=== PATIENT | female | born 1955 | race Caucasian/White ===

== ENCOUNTER 2017-10-29 06:08 | Day surgery (SDC) | payer BC ==
--- NOTE | 2017-10-24 20:10 | HP ---
CC: Dr. Alethea Billingsley * ADMITTING HISTORY AND PHYSICAL: DATE OF ADMISSION: 10/29/17 ADMITTING DIAGNOSES: 1. Calculus, right proximal ureter. 2. Right flank pain. PLANNED PROCEDURE: Shock wave lithotripsy of calculus, right ureter; possible right stent insertion. SURGEON: Dr. Espitia. HISTORY OF PRESENT ILLNESS: Charlene Loya is a 62-year-old lady with a long- standing history of renal calculi. She had been seen several months ago and at that time was noted to have a 5.6-mm calculus in the right ureteropelvic junction without any hydronephrosis. She was recently seen in followup and was complaining of increasing right flank discomfort and ultrasound revealed a 5.2- cm calculus in the right proximal ureter and she is now being brought in for management of the same. PAST MEDICAL HISTORY: Significant for: 1. Juvenile-onset diabetes mellitus. 2. Hypertension. 3. Hypothyroidism. 4. Recurrent renal calculi. 5. Lumbar radiculopathy. 6. History of depression. PAST SURGICAL HISTORY: Significant for: 1. Seven surgical procedures related to the right knee. 2. x2. 3. Total abdominal hysterectomy. 4. Appendectomy. 5. Lower back fusion surgery. MEDICATIONS: On admission, include: 1. Gabapentin 600 mg twice a day. 2. Soma 2 tablets at bedtime as needed. 3. Bumetanide 0.5 mg 1 tablet daily. 4. Ramipril 10 mg twice a day. 5. Simvastatin 40 mg a day. 6. Lialda 1.2 g delayed release 1 tablet daily. 7. Budesonide extended release 3 mg 2 capsules daily. 8. Escitalopram 20 mg daily. 9. Levothyroxine 100 mcg daily. 10. Insulin as directed. ALLERGIES AND INTOLERANCES: PENICILLIN (rash), MORPHINE, and SUDAFED. SMOKING HISTORY: She is a former smoker, who quit 3 to 4 years ago. PHYSICAL EXAMINATION GENERAL: Reveals a pleasant middle-aged lady. VITAL SIGNS: Blood pressure is 124/76, pulse 72 per minute, oxygen saturation 99% on room air. LUNGS: Clear bilaterally. CARDIOVASCULAR: Regular rate and rhythm. S1, S2. ABDOMEN: Soft with right flank tenderness. LABORATORY DATA: Urinalysis is negative with no evidence of urinary tract infection. IMPRESSION: A 62-year-old lady with right flank pain and a 5-mm calculus in the proximal right ureter. PLAN: Planned procedure is shock wave lithotripsy of calculus, right ureter; possible right stent insertion. [id number]/[facility] #: [id number] GEOVANNY
[~2017-10-29 06:08] MED LIST: Buffered Lidocaine 0.9% SYRIN* 5 ML/SYR SYRINGE INTRADERM ONE
[2017-10-29] MEDS ORDERED: Levofloxacin 500 MG IVPREMIX(* 500 MG/100 ML BAG IVPB ONE (06:37)
[2017-10-29] MEDS ORDERED: Buffered Lidocaine 0.9% SYRIN* 5 ML/SYR SYRINGE ONE (06:37)
[2017-10-29] MEDS ORDERED: fentaNYL* 50 MCG/ML 2 ML VIAL (100 MCG VIAL) ONE (07:08)
[2017-10-29] MEDS ORDERED: Midazolam* 1 MG/ML 2 ML VIAL (2 MG) ONE ×2 (07:08)
[2017-10-29] MEDS ORDERED: Remifentanil* 2 MG VIAL ONE (07:23)
[2017-10-29] MEDS ORDERED: Iohexol 180 (CONTRAST) 10 ML SDV IV ONE (07:29)
[2017-10-29] MEDS ORDERED: Furosemide IV* 10 MG/ML 2 ML VIAL (20 MG) ONE (07:40)
[2017-10-29] MEDS ORDERED: Ondansetron INJ* 2 MG/ML VIAL IV PRN (07:54)
[2017-10-29] MEDS ORDERED: Naloxone* 0.4 MG/ML 1 ML VIAL IV PRN (07:54)
[2017-10-29] MEDS ORDERED: fentaNYL* 50 MCG/ML 2 ML VIAL (100 MCG VIAL) IV PRN (07:54)
[2017-10-29] MEDS ORDERED: Propofol* 10 MG/ML 20 ML BTL IV PUSH ONE (08:00)
--- NOTE | 2017-10-29 08:20 | RAD ---
Indication: Shockwave lithotripsy. History of RIGHT kidney stone. Comparison: October 24, 2017 abdomen radiograph and March 10, 2016 CT. Technique: Supine view of the abdomen. Report: Unremarkable bowel gas pattern. Moderate stool in the colon without significant rectal distension. Typical partial obscuration of the renal fossa and course of the ureters by bowel contents 0.5 cm stone at the level of the RIGHT renal pelvis is unchanged compared with October 24, 2017 exam. 0.3 cm stone at level of the upper pole of the LEFT kidney is unchanged compared with the 2016 CT. Multiple pelvic phleboliths noted. L3-L5 posterior lumbar spine fixation hardware. No significant change in approximate 1.2 cm leftward translation of the superior endplate of L3 relative to the inferior endplate of L2 compared with the October 24, 2017 exam. Unremarkable soft tissue contours. IMPRESSION: No significant interval change in urolithiasis.
[2017-10-29] MEDS ORDERED: oxyCODONE/Acetamin 5/325 MG* TAB ONE (08:35)
[2017-10-29 08:56] VITALS: BP 149/72
--- NOTE | 2017-10-29 09:27 | OP ---
CC: Dr. Alethea Billingsley; Aleksandar Espitia MD* OPERATIVE REPORT: DATE OF OPERATION: 10/29/17 - [facility] DATE OF : 53 SURGEON: Aleksandar Espitia MD ANESTHESIA: Intravenous sedation. ANESTHESIOLOGIST: Dr. Chung. PRE-OP DIAGNOSIS: Calculus, right proximal ureter. POST-OP DIAGNOSIS: Calculus, right proximal ureter. SURGICAL PROCEDURE: Shockwave lithotripsy of calculus, right ureter. COMPLICATIONS: None. POST-OP CONDITION: Stable. INDICATIONS: Charlene Loya is a 62-year-old lady with a history of recurrent renal calculi. She was noted to have approximately 5.5-mm calculus in the right proximal ureter, which has been persistent in that location and she is now being brought in for lithotripsy. DESCRIPTION OF PROCEDURE: After administration of intravenous sedation, the patient was placed on the lithotripsy table in supine position. The calculus in the right proximal ureter was identified on fluoroscopy. Shockwave lithotripsy was commenced at a rate of 90 shocks per minute. Periodic imaging revealed good localization and fragmentation. I had originally been prepared to put a right stent if necessary, but because the stone appeared to fragment fairly well, there was no need to proceed with stent insertion. A total of 2000 shocks were administered. The patient tolerated the procedure satisfactorily and was transferred back to the recovery area in stable condition. [id number]/[facility] #: [id number] MTDD
--- NOTE | 2017-10-29 10:11 | RAD ---
INDICATION: Postop status post right side lithotripsy. COMPARISON: Comparison is made with a prior x-ray study from approximately 3 hours earlier. TECHNIQUE: Frontal supine films of the abdomen were obtained. FINDINGS: The small bowel and colon appear nondistended. The previously noted calculus which projected over the right renal pelvis appears less dense and smaller in size and only faintly visualized. The patient is status post posterior spinal fusion and laminectomy at the L3-L5 levels. IMPRESSION: THE RIGHT RENAL CALCULUS APPEARS SMALLER IN SIZE.
== END 2017-10-29 09:02 | disposition home or self-care (01) ==
LOC: OR 06:08
PROVIDERS: ATTEND Urology
DX: N20.1 Calculus of ureter (principal); E11.9 Type 2 diabetes mellitus without complications; Z79.4 Long term (current) use of insulin; I10 Essential (primary) hypertension; E03.9 Hypothyroidism, unspecified; M54.16 Radiculopathy, lumbar region; Z87.891 Personal history of nicotine dependence; F41.8 Other specified anxiety disorders
CPT/HCPCS: 74018; A9270-GY; J1940; J1956; J2250; J2704; J3010

== ENCOUNTER 2018-08-02 21:04 | Emergency (ER) | payer BC ==
--- OUTSIDE RECORDS SUMMARY | 2018-08-02 21:10 | XMS REPORT | Continuity of Care Document ---
:1955 External Reference #:[id number] Author Name Bud Black CMAina Care Team Providers Name Role Phone Manny Masterson MD Care Team Information Floor Broker Unavailable Alethea Billingsley M.D. Primary Care Physician Unavailable Payers Type Date Identification Numbers Payment Provider Subscriber Effective: Policy Number: [employer] Charlene Loya 2016 [id number] [facility] PayID: [id number] [address] [address] [place] [phone] Advance Directives Description No Information Available Problems Date Description Provider Status Onset: Low back pain Active Onset: Hypertension Active Onset: High cholesterol Active Onset: Diabetes mellitus type 1 Active Onset: 09/13/2016 Anxiety disorder Manny Masterson MD Active Onset: 12/18/2017 Lumbar radiculopathy Manohar Barnett MD Active Onset: 12/18/2017 Lumbar spine ankylosis Manohar Barnett MD Active Onset: 12/18/2017 Arthropathy of spinal facet joint Manohar Barnett MD Active Onset: 12/18/2017 Lumbar post-laminectomy syndrome Manohar Barnett MD Active Onset: 12/18/2017 Sacrococcygeal disorders, not elsewhere Manohar Barnett MD Active classified Onset: Depressive disorder Active Onset: Thyroid disease Active Onset: 02/28/2018 Chronic pain Manohar Barnett MD Active Onset: 02/28/2018 Arthrodesis status Manohar Barnett MD Active Onset: 06/13/2018 Solitary sacroiliitis Manohar Barnett MD Active Family History Date Family Member(s) Problem(s) Comments Father Chronic Obstructive Pulmonary Disease (COPD) Father due to Cancer () Mother due to Congestive Heart Failure (CHF) () Mother Hypertension Mother Diabetes Grandfather due to Stroke () Grandmother due to Heart Attack () Social History Type Date Description Comments Sex Unknown Education Highest level completed, 2 years of college Marital Status 12/18/2017 Legal Status: Lives With 12/28/2016 Spouse Work Status Disabled Hand Dominance Right-Handed ETOH Use 06/13/2018 Occasionally consumes 1 glass about twice wine a month Tobacco Use Start: Unknown End: Patient is a former less than a pack a Unknown smoker day for 40 years quit 2016 Recreational Drug Use 06/13/2018 Denies Drug Use Smoking Status Reviewed: 06/13/18 Patient is a former less than a pack a smoker day for 40 years quit 2016 Allergies, Adverse Reactions, Alerts Date Description Reaction Status Severity Comments 09/13/2016 Penicillin Active 09/13/2016 Sudafed Active 09/13/2016 Morphine Inactive Medications Medication Date Status Form Strength Qnty SIG Indications Ordering Provider Cyclobenzaprine HCL 03/22 Active Tablets 5mg 45tab 1 tab by Janell /2016 s mouth A every 8 Chayo hours , BATCH ATTENDANT-C needed for muscle spasms Humalog Active Solution 100Unit/M use Unknown /0000 L directed per sliding scale maximum daily dose is 40 units Hydrochlorothiazide Active Tablets 50mg 2 by mouth Unknown /0000 every day Levothyroxine Active Solution 100mcg one by Unknown Sodium /0000 Rec mouth daily. take on an empty stomach Bumetanide Active Tablets 0.5mg 1 by mouth Unknown /0000 every day Escitalopram Active Tablets 20mg 1 by mouth Unknown Oxalate /0000 every day Vitamin C Active Capsules 500mg t,1,PO,qd Unknown /0000 Multi Vitamin Active Tablets 1 by mouth Unknown /0000 every day Potassium 00 Active Tablets 99mg 1 by mouth Unknown /0000 every day Aspirin Active Tablets 81mg 1 by mouth Unknown /0000 DR every day Bethanechol 00/00 Active Tablets 10mg Unknown Chloride /0000 Lialda Active Tablets 1.2gm take 3 Unknown /0000 DR tablets every day with a meal Altace Active Capsules 10mg 1 by mouth Unknown / every day Simvastatin Active Tablets 40mg 1 by mouth Unknown / every day Amitriptyline HCL Active Tablets 50mg take 1 Unknown / tablet by mouth AT bedtime Naproxen Active Tablets 220mg take 1 Unknown / tablet by mouth every 8 hours needed for pain Butalbital/Acetamin Active Capsules 50-300-40 1 tablet Unknown ophen/Caffeine /0000 mg by mouth every 8 hours when necessary Lorazepam Active Tablets 0.5mg take 1 Unknown tablet by oral route 2 times every day needed Motion Sickness Active Chewtabs 25mg prn Unknown Relief Ondansetron Active Tablets 4mg prn- every Unknown Dispers 4 hrs Glucagon Emergency Active Kit 1mg use Unknown /0000 needed Budesonide Active Caps DR 3mg take 2 Unknown Part capsules by mouth daily for 1 week needed Oxycodone-Acetamino Active Tablets 10-325mg Take 1 tab Unknown phen PO tid Lyrica Active Capsules 75mg 1 tab bid Billingsley, /0000 every 12 Alethea R, hrs M.D. Arthritis Pain Active Tablets 650mg needed Unknown /0000 ER Bupropion HCL ER Active Tablets 150mg 1 by mouth Unknown (Smoking Det) / ER 12HR twice a day Azithromycin Active Tablets 250mg 2 tab by Unknown /0000 mouth on day 1, then 1 tab by mouth for 4 days Zolpidem Tartrate Active Tablets 12.5mg one AT Unknown ER /0000 ER bedtime for insomnia Gabapentin 05/21 Hx Capsules 300mg take 2 Janell /2017 capsules A - by mouth 2 Chayo 01/07 times a , BATCH ATTENDANT-C day Gabapentin 12/01 Hx Tablets 600mg 90tab 1 tab by Janell /2017 s mouth A - three hCayo 05/21 times a , BATCH ATTENDANT-C day Gabapentin 11/27 Hx Capsules 300mg 90cap take 1 Janell s capsules A - by mouth 3 Chayo 12/01 times a [facility] day Glucosamine-Chondro 09/13 Hx Capsules 750-600mg 2 by mouth Manny thomas every day Familia Masterson MD 11/04 Cranberry Hx Softgels take one Unknown /0000 by mouth - two times 01/07 a Endocet Hx Tablets 10-325mg take one Unknown /0000 tablet by - mouth 4 12/28 times a day needed Oxycodone HCL Hx Tablets 30mg 1 tabs Unknown /0000 every 4-6 - hours 12/28 needed moderate-t o-severe pain Omeprazole Hx Capsules 26.6(20Ba take 1 Unknown Magnesium /0000 DR joyce) mg capsule,de - layed 05/26 (enteric coated) orally twice a day Carisoprodol Hx Tablets 350mg 1 tab by Unknown /0000 mouth AT - night 05/26 needed. Valerian Hx Capsules 450mg needed Unknown /0000 - 05/26 Sucralfate Hx Tablets 1gm take 1 tab Unknown /0000 4 times a - day,empty 05/26 stomach, HR. before meals and AT bedtime needed Azithromycin 00 Hx Tablets 250mg 2 tabs day Unknown /0000 1 then 1 - daily for 12/18 4 days Ferrous Gluconate 00 Hx Tablets 240(27Fe) 1 by mouth Unknown /0000 mg twice a - day 01/07 Iron (Ferrous Hx Tablets 256(28Fe) 1 by mouth Unknown Gluconate) /0000 mg every day - 05/26 Immunizations Description No Information Available Vital Signs Date Vital Result Comment 06/13/2018 9:22am Height 63 inches 5'3" Weight 133.00 lb BMI (Body Mass Index) 23.6 kg/m2 BP Systolic 111 mmHg BP Diastolic 66 mmHg 05/27/2018 10:12am Height 63 inches 5'3" Weight 133.00 lb BMI (Body Mass Index) 23.6 kg/m2 BP Systolic 130 mmHg BP Diastolic 77 mmHg Heart Rate 89 /min 02/28/2018 9:27am Height 63 inches 5'3" Weight 135.00 lb BMI (Body Mass Index) 23.9 kg/m2 BP Systolic 126 mmHg BP Diastolic 72 mmHg 02/18/2018 11:00am Height 63 inches 5'3" Weight 135.00 lb BMI (Body Mass Index) 23.9 kg/m2 BP Systolic 122 mmHg BP Diastolic 68 mmHg Heart Rate 91 /min 01/21/2018 10:16am Height 63 inches 5'3" Weight 134.00 lb BMI (Body Mass Index) 23.7 kg/m2 BP Systolic 139 mmHg BP Diastolic 84 mmHg 01/08/2018 10:49am Height 63 inches 5'3" Weight 134.00 lb BMI (Body Mass Index) 23.7 kg/m2 BP Systolic 133 mmHg BP Diastolic 70 mmHg Heart Rate 88 /min 12/26/2017 10:06am Height 63 inches 5'3" Weight 134.00 lb BMI (Body Mass Index) 23.7 kg/m2 BP Systolic 154 mmHg BP Diastolic 82 mmHg 12/18/2017 9:10am Height 63 inches 5'3" Weight 134.00 lb BMI (Body Mass Index) 23.7 kg/m2 BP Systolic 146 mmHg BP Diastolic 83 mmHg 11/27/2017 11:01am Height 63 inches 5'3" Weight 133.00 lb BMI (Body Mass Index) 23.6 kg/m2 BP Systolic 117 mmHg BP Diastolic 72 mmHg Heart Rate 91 /min 11/05/2017 11:26am Height 63 inches 5'3" Weight 134.00 lb BMI (Body Mass Index) 23.7 kg/m2 BP Systolic 129 mmHg BP Diastolic 75 mmHg Heart Rate 86 /min 05/21/2017 10:33am Height 63 inches 5'3" Weight 134.00 lb BMI (Body Mass Index) 23.7 kg/m2 BP Systolic 120 mmHg BP Diastolic 68 mmHg Heart Rate 86 /min Body Temperature 97.8 F Body Temperature 36.6 C 03/06/2017 12:36pm Height 63 inches 5'3" Weight 138.00 lb BMI (Body Mass Index) 24.4 kg/m2 BP Systolic 144 mmHg BP Diastolic 71 mmHg Heart Rate 87 /min 02/07/2017 9:02am Height 63 inches 5'3" Weight 142.00 lb BMI (Body Mass Index) 25.2 kg/m2 BP Systolic 158 mmHg BP Diastolic 69 mmHg Heart Rate 80 /min Body Temperature 98.1 F Body Temperature 36.7 C 12/28/2016 10:30am Height 63 inches 5'3" Weight 147.00 lb BMI (Body Mass Index) 26.0 kg/m2 BP Systolic 176 mmHg BP Diastolic 77 mmHg Heart Rate 87 /min Body Temperature 98.1 F Body Temperature 36.7 C 11/20/2016 12:47pm Height 63 inches 5'3" BP Systolic 145 mmHg BP Diastolic 86 mmHg Heart Rate 81 /min 11/01/2016 9:05am Height 63 inches 5'3" Weight 148.00 lb BMI (Body Mass Index) 26.2 kg/m2 BP Systolic 168 mmHg BP Diastolic 82 mmHg Heart Rate 78 /min Body Temperature 98.2 F Body Temperature 36.8 C 10/26/2016 1:16pm Height 63 inches 5'3" Weight 144.00 lb BMI (Body Mass Index) 25.5 kg/m2 BP Systolic 144 mmHg BP Diastolic 71 mmHg Heart Rate 83 /min Body Temperature 98.2 F Body Temperature 36.8 C 10/17/2016 1:29pm Height 63 inches 5'3" Weight 148.00 lb BMI (Body Mass Index) 26.2 kg/m2 BP Systolic 154 mmHg BP Diastolic 78 mmHg Heart Rate 87 /min Body Temperature 97.7 F Body Temperature 36.5 C 09/13/2016 11:03am Height 63 inches 5'3" Weight 151.00 lb BMI (Body Mass Index) 26.7 kg/m2 BP Systolic 119 mmHg L BP Diastolic 73 mmHg L Heart Rate 87 /min Results Test Date Facility Test Result H/L Range Note Laboratory test 10/26/2016 [facility] Send Out SENT - 1 finding [phone] [place] [id number] [phone] [facility] [place] 2 1 See Reference Laboratory Report 2 NASAL SWAB FOR MRSA/MSSA BY PCR TO [facility] Procedures Date Code Description Status 01/30/2018 85668 Injection Proc Sacroiliac Joint, Completed Arthrography/Anesthetic/Steroid 01/14/2018 75786 Injection Proc Sacroiliac Joint, Completed Arthrography/Anesthetic/Steroid 12/19/2017 51620 Injection Proc Sacroiliac Joint, Completed Arthrography/Anesthetic/Steroid 11/02/2016 28028 Arthrodesis Posterior/Posterolateral Single, Lumbar Completed 11/02/2016 76437 Arthrodesis Posterior/Posterolateral Single, Lumbar Completed 11/02/2016 69099 Arthrodesis Posterior/Posterolateral, Ea Addtl Vertebral Completed Segment 11/02/2016 35441 Arthrodesis Posterior/Posterolateral, Ea Addtl Vertebral Completed Segment 11/02/2016 62488 Arthrodesis Posterior/Posterolateral, Ea Addtl Vertebral Completed Segment 11/02/2016 96040 Arthrodesis Posterior/Posterolateral, Ea Addtl Vertebral Completed Segment 11/02/2016 82005 Laminectomy Single Vertebral Segment Lumbar Completed 11/02/2016 73156 Laminectomy Single Vertebral Segment Lumbar Completed 11/02/2016 76435 Laminectomy Single Vertebral Segment Each Addtl Completed 11/02/2016 79446 Laminectomy Single Vertebral Segment Each Addtl Completed 11/02/2016 16712 Laminectomy Single Vertebral Segment Each Addtl Completed 11/02/2016 22961 Laminectomy Single Vertebral Segment Each Addtl Completed 11/02/2016 53405 Laminectomy Single Vertebral Segment Each Addtl Completed 11/02/2016 68391 Laminectomy Single Vertebral Segment Each Addtl Completed 10/26/2016 60112 Electrocardiogram Interpretation & Report Only Completed Encounters Type Date Location Provider Dx Diagnosis Office Visit 06/13/2018 [facility] Fermín Mix M54.16 Radiculopathy, 9:15a Spine / Pain Yanci Barnett MD lumbar region G89.29 Other chronic pain M96.1 Postlaminectomy syndrome, not elsewhere classified M46.1 Sacroiliitis, not elsewhere classified Z98.1 Arthrodesis status Office Visit 05/27/2018 10:00a [facility] Neurosurgery Manny Masterson, M46.1 Sacroiliitis, not MD elsewhere classified M53.3 Sacrococcygeal disorders, not elsewhere classified M96.1 Postlaminectomy syndrome, not elsewhere classified M51.16 Intervertebral disc disorders w radiculopathy, lumbar region G89.29 Other chronic pain E11.9 Type 2 diabetes mellitus without complications Z87.891 Personal history of nicotine dependence 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 Office Visit 02/28/2018 [facility] Fermín Mix M53.3 Sacrococcygeal 9:30a Spine / Pain MD Anibal disorders, not Yanci elsewhere classified M12.88 Oth specific arthropathies, NEC, oth site M54.16 Radiculopathy, lumbar region M96.1 Postlaminectomy syndrome, not elsewhere classified G89.29 Other chronic pain Z98.1 Arthrodesis status Office Visit 02/18/2018 [facility] Neurosurgery Manny Masterson, M53.3 Sacrococcygeal 10:45a MD disorders, not elsewhere classified M12.88 Oth specific arthropathies, NEC, oth site M54.16 Radiculopathy, lumbar region M96.1 Postlaminectomy syndrome, not elsewhere classified M51.16 Intervertebral disc disorders w radiculopathy, lumbar region Office Visit 01/21/2018 [facility] Interventional Manohar S M53.3 Sacrococcygeal 10:00a Spine / Pain MD Anibal disorders, not Yanci elsewhere classified M54.16 Radiculopathy, lumbar region M96.1 Postlaminectomy syndrome, not elsewhere classified M12.88 Oth specific arthropathies, NEC, oth site M43.26 Fusion of spine, lumbar region Office Visit 01/08/2018 [facility] Neurosurgery Manny Masterson, M53.3 Sacrococcygeal 10:45a MD disorders, not elsewhere classified M54.16 Radiculopathy, lumbar region M96.1 Postlaminectomy syndrome, not elsewhere classified M12.88 Oth specific arthropathies, NEC, oth site Office Visit 12/26/2017 [facility] Interventional Manohar S M53.3 Sacrococcygeal 10:00a Spine / Pain MD Anibal disorders, not Yanci elsewhere classified M54.16 Radiculopathy, lumbar region M96.1 Postlaminectomy syndrome, not elsewhere classified M43.26 Fusion of spine, lumbar region M12.88 Oth specific arthropathies, NEC, oth site Office Visit 12/18/2017 [facility] Interventional Manohar S M54.16 Radiculopathy, 9:00a Spine / Pain MD Anibal lumbar region Yanci M96.1 Postlaminectomy syndrome, not elsewhere classified M43.26 Fusion of spine, lumbar region M12.88 Oth specific arthropathies, NEC, oth site M53.3 Sacrococcygeal disorders, not elsewhere classified Office Visit 11/27/2017 10:30a [facility] Neurosurgery Manny Masterson, M41.9 ScoliosisMD unspecified M51.36 Other intervertebral disc degeneration, 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, lumbar region E11.9 Type 2 diabetes mellitus without complications Z87.891 Personal history of nicotine dependence Office Visit 11/05/2017 10:30a [facility] Neurosurgery Manny Masterson, M41.9 Scoliosis, MD unspecified M79.604 Pain in right leg M25.552 Pain in left hip M51.36 Other intervertebral disc degeneration, lumbar region Office Visit 05/21/2017 10:30a [facility] Neurosurgery Manny Masterson, M41.9 ScoliosisMD unspecified M79.604 Pain in right leg M25.552 Pain in left hip F17.210 Nicotine dependence, cigarettes, uncomplicated Office Visit 03/06/2017 1:00p [facility] Neurosurgery Manny Masterson, M41.9 Scoliosis, MD unspecified M51.36 Other intervertebral disc degeneration, lumbar region M48.06 Spinal stenosis, lumbar region E11.9 Type 2 diabetes mellitus without complications M79.604 Pain in right leg M25.552 Pain in left hip F17.210 Nicotine dependence, cigarettes, uncomplicated Office Visit 02/07/2017 [facility] Neurosurgery Janell Schwartz M51.36 Other 9:00a Chayo, intervertebral disc BATCH ATTENDANT-C degeneration, lumbar region Office Visit 10/17/2016 [facility] Neurosurgery Manny Masterson MD M54.5 Low back pain 1:45p M48.06 Spinal stenosis, lumbar region M79.605 Pain in left leg M79.604 Pain in right leg M54.16 Radiculopathy, lumbar region M25.551 Pain in right hip M51.16 Intervertebral disc disorders w radiculopathy, lumbar region Office Visit 09/13/2016 11:00a [facility] Neurosurgery Manny Masterson MD M54.5 Low back pain M48.06 Spinal stenosis, lumbar region M79.605 Pain in left leg M79.604 Pain in right leg M54.16 Radiculopathy, lumbar region M25.551 Pain in right hip Plan of Treatment Future Appointment(s):08/12/2018 9:30 am - Manny Masterson MD at [facility] Epuwrnxhtdfb43/06/2018 - Manohar Barnett, MDM54.16 Radiculopathy, lumbar hktbllF50.29 Other chronic painM96.1 Postlaminectomy syndrome, not elsewhere [id number] Sacroiliitis, not elsewhere [id number] Arthrodesis statusComments:~B_Plan:~b_ Unfortunately the sacroiliac joint injections did not give her any pain relief. She is also a brittle diabetic and cannot tolerate steroid injections. So this leaves the option of either surgery or spinal cord stimulation. I discussed the option of spinal cord stimulation extensively with her and I have given her information regarding this procedure. I have recommended that she talk to Dr. Masterson and if further surgery is not an option then we will consider spinal cord stimulation.This also may be technically challenging because she has kyphoscoliosis. Once she gets clearance from Dr. Masterson that further surgery is not indicated or necessary then we'll consider spinal cord stimulation.Follow up:As needed.
[2018-08-02 21:26] VITALS: BP 137/73
[2018-08-02 21:56] LABS: Influenza A Molecular NEGATIVE (Negative); Influenza B Molecular NEGATIVE (Negative)
--- NOTE | 2018-08-02 22:51 | UC ---
FLU HPI - HPI Summary HPI Summary: Onset last night of cough, chest congestion, headache and body aches. Found to have low-grade fever here in the UC. - History of Current Complaint Chief Complaint: UCRespiratory Stated Complaint: ACHES, FEVER, AND CHEST CONGESTION Time Seen by Provider: 08/02/18 22:13 Hx Obtained From: Patient Hx Last Menstrual Period: POST-MENOPAUSAL Onset/Duration: Gradual Onset, Lasting Hours, Still Present Severity Currently: Moderate Severity Initially: Moderate Pain Intensity: 3 Pain Scale Used: 0-10 Numeric Associated Signs & Symptoms: Positive: Fever, Myalgia, Cough, Nasal Congestion, Headache - Allergy/Home Medications Allergies/Adverse Reactions: Allergies Allergy/AdvReac Type Severity Reaction Status Date / Time pseudoephedrine Allergy Severe See Comment Verified 08/02/18 21:27 Penicillins Allergy Mild Rash Verified 08/02/18 21:27 PMH/Surg Hx/FS Hx/Imm Hx Endocrine History: Diabetes, Hypothyroidism Cardiovascular History: Hypertension - Surgical History Surgical History: Yes Surgery Procedure, Year, and Place: RIGHT WRIST FUSION, HYSTERECTOMY, LOWER BACK FUSION L2-L5 2016,. BILATERAL SHOULDER SURGERY-RIGHT WRIST CARPAL TUNNEL SURGERY. 04/2016 KIDNEY STONES. APPENDIX 1970. WISDOM TEETH 1972. C SECTIONS 1978/1980. 7 RIGHT KNEE SURGERIES -NO KNEE CAP [id number]. NUMEROUS TRIGGER FINGER RELEASES. left hip replacement 2016 - Family History Known Family History: Positive: Cardiac Disease, Hypertension, Diabetes - Social History Alcohol Use: Rare Substance Use Type: None Smoking Status (MU): Former Smoker Amount Used/How Often: <1 PPD X 30 YEARS Have You Smoked in the Last Year: No When Did the Patient Quit Smoking/Using Tobacco: 2001 Review of Systems All Other Systems Reviewed And Are Negative: Yes Constitutional: Positive: Fever, Fatigue ENT: Positive: Sore Throat, Nasal Discharge Respiratory: Positive: Cough Cardiovascular: Positive: Negative Gastrointestinal: Positive: Negative Musculoskeletal: Positive: Arthralgia, Myalgia Neurological: Positive: Headache Physical Exam Triage Information Reviewed: Yes Appearance: Well-Appearing, No Pain Distress, Well-Nourished Vital Signs: Initial Vital Signs Temp 100.3 F 08/02/18 21:24 Pulse 122 08/02/18 21:24 Resp 18 08/02/18 21:24 BP 137/73 08/02/18 21:24 Pulse Ox 95 08/02/18 21:24 Laboratory Tests 08/02/18 21:44 Influenza A (Rapid) Negative Influenza B (Rapid) Negative Vital Signs Reviewed: Yes Eyes: Positive: Conjunctiva Clear ENT: Positive: Hearing grossly normal, Pharynx normal, TMs normal Neck: Positive: Supple, Nontender, No Lymphadenopathy Respiratory Exam: Normal Cardiovascular: Positive: Tachycardia, Other: - IRREGULAR Abdomen Description: Positive: Soft Musculoskeletal: Positive: No Edema Neurological: Positive: Alert Psychological: Positive: Age Appropriate Behavior Skin: Negative: Rashes Flu Course/Dx - Course Course Of Treatment: FLU SWAB NEGATIVE. PATIENT'S SYMPTOMS ARE LIKELY VIRALLY MEDIATED. ENCOURAGED CONSERVATIVE MANAGEMENT. FOLLOW-UP IF SYMPTOMS ARE NOT IMPROVING OVER THE NEXT FEW DAYS. EKG OBTAINED DUE TO IRREGULAR HEART RATE ON EXAM. PATIENT TACHYCARDIC LIKELY DUE TO FEVER. NO ACUTE ST-T WAVE CHANGES BUT RHYTHM APPEARS TO BE ATRIAL BIGEMINY. NO ACUTE INTERVENTION AT PRESENT BUT PT SHOULD DISCUSS THIS WITH HER PCP. PATIENT HAS FOLLOW-UP WITH HER PCP IN LESS THAN 2 WEEKS. - Differential Dx/Diagnosis Provider Diagnosis: Acute viral syndrome Discharge - Sign-Out/Discharge Documenting (check all that apply): Patient Departure All imaging exams completed and their final reports reviewed: No Studies - Discharge Plan Condition: Stable Disposition: HOME Patient Education Materials: Viral Syndrome (ED) Referrals: Alethea Billingsley MD [Primary Care Provider] - 1 Week Additional Instructions: FLU SWAB NEGATIVE. YOUR SYMPTOMS ARE LIKELY VIRALLY MEDIATED AND SHOULD RESOLVE ON THEIR OWN WITH TIME. NO INDICATION FOR ANTIBIOTICS AT PRESENT. REST, HYDRATE , OTC MEDS NEEDED. SEEK FOLLOW-UP IF YOU ARE NOT IMPROVING OVER THE NEXT 1- 2 WEEKS. YOU HAVE AN IRREGULAR HEART RATE ON EKG. GIVEN YOU ARE ASYMPTOMATIC YOU MAY NOT NEED ANY INTERVENTION. I WOULD DISCUSS THIS WITH YOUR PCP AT YOUR UPCOMING VISIT. YOU MAY BENEFIT FROM CARDIOLOGY REFERRAL. - Billing Disposition and Condition Condition: STABLE Disposition: Home
== END 2018-08-02 22:52 | disposition home or self-care (01) ==
LOC: UCEAST 21:04
DX: B34.9 Viral infection, unspecified (principal); R00.8 Other abnormalities of heart beat; R00.2 Palpitations; R05 Cough; R09.81 Nasal congestion; R51 Headache; I10 Essential (primary) hypertension; E11.9 Type 2 diabetes mellitus without complications; Z87.891 Personal history of nicotine dependence; Z88.8 Allergy status to other drugs, medicaments and biological substances; Z88.0 Allergy status to penicillin
CPT/HCPCS: 99212; G0463

== ENCOUNTER 2018-08-20 19:18 | Emergency (ER) | payer BC ==
--- OUTSIDE RECORDS SUMMARY | 2018-08-20 19:46 | XMS REPORT | Continuity of Care Document ---
:1955 External Reference #:[id number] Author Name Manny Masterson MD Address [address], [address] [place] [address] Care Team Providers Name Role Phone Manny Masterson MD Care Team Information Manager Game Unavailable Alethea Billingsley M.D. Primary Care Physician Unavailable Payers Type Date Identification Numbers Payment Provider Subscriber Policy Number: [id number] Anthony DEANNE Vargasrona Bloom Vincenzo PayID: [id number] [facility] [id number] [address]so [id number] Effective: 2016 Policy Number: Anthony DEANNE Charlene Lawlerkim [id number] [facility] Expires: 2018 PayID: [id number] [facility] [id number] JIHAN Russo [phone] Advance Directives Description No Information Available Problems [...] 06/13/2018 Denies Drug Use Smoking Status Reviewed: 08/12/18 Patient is a former less than a [...] mouth A every 8 Chayo hours , DIETARY AIDE-C needed for muscle spasms Humalog Active Solution [...] Tablets 20mg 1 by mouth Unknown Oxalate / every day Vitamin C Active Capsules 500mg t,1,PO,qd Unknown Multi Vitamin Active Tablets 1 by mouth Unknown every day Potassium Active Tablets 99mg 1 by mouth Unknown every day Aspirin Active Tablets 81mg [address] every day Bethanechol Active Tablets 10mg Unknown Chloride Lialda Active Tablets 1.2gm take [address] tablets every day with a meal Altace Active Capsules 10mg 1 by mouth Unknown every day Simvastatin Active Tablets 40mg 1 by mouth Unknown every day Amitriptyline HCL Active Tablets 50mg take 1 Unknown tablet by mouth AT bedtime Naproxen Active Tablets 220mg take 1 tablet by mouth every 8 hours needed for pain Butalbital/Acetamin Active Capsules 50-300-40 1 tablet Unknown ophen/Caffeine /0000 mg by mouth every 8 hours when necessary Lorazepam Active Tablets 0.5mg take 1 tablet by oral route 2 times every day needed Motion Sickness Active Chewtabs 25mg prn Unknown Relief Ondansetron Active Tablets 4mg prn- every Dispers 4 hrs Glucagon Emergency Active Kit 1mg use Unknown /0000 needed [address] Active Caps DR 3mg take 2 Unknown Part capsules by mouth daily for 1 week needed Oxycodone-Acetamino Active Tablets 10-325mg Take 1 tab Unknown phen PO tid Lyrica Active Capsules 75mg 1 tab bid Billingsley, /0000 every 12 Alethea R, hrs M.D. Arthritis Pain Active Tablets 650mg needed Unknown ER Bupropion HCL ER Active Tablets 150mg 1 by mouth Unknown (Smoking Det) ER 12HR twice a day Azithromycin Active Tablets 250mg 2 tab by Unknown /0000 mouth on day 1, then 1 tab by mouth for 4 days Zolpidem Tartrate Active Tablets 12.5mg one AT Unknown ER /0000 ER bedtime for insomnia Gabapentin 05/21 Hx Capsules 300mg take 2 Janell /2017 capsules A - by mouth 2 Chayo 01/07 times a , DIETARY AIDE-C day Gabapentin 12/01 Hx Tablets 600mg 90tab 1 tab by Janell /2017 s mouth A - three Chayo 05/21 times a , DIETARY AIDE- day Gabapentin 11/27 Hx Capsules 300mg 90cap take 1 Janell /2017 s capsules A - by mouth 3 Chayo 12/01 times a , DIETARY AIDE-C day Glucosamine-Chondro 09/13 Hx Capsules 750-600mg 2 by mouth Manny mancia every day Familia Masterson MD 11/04 Cranberry Hx Softgels take one Unknown /0000 by mouth - two times 01/07 a Endocet Hx Tablets 10-325mg take one Unknown /0000 tablet by - mouth 4 12/28 times day needed Oxycodone HCL Hx Tablets 30mg [...] before meals and AT bedtime needed Azithromycin Hx Tablets 250mg 2 tabs day Unknown /0000 1 then 1 - daily for 12/18 4 days Ferrous Gluconate Hx Tablets 240(27Fe) 1 by mouth Unknown /0000 mg twice a - day 01/07 Iron (Ferrous Hx Tablets 256(28Fe) 1 by mouth Unknown Gluconate) /0000 mg every day - 05/26 Immunizations Description No Information Available Vital Signs Date Vital Result Comment 08/12/2018 9:20am Height 63 inches 5'3" Weight 134.00 lb BMI (Body Mass Index) 23.7 kg/m2 BP Systolic 131 mmHg BP Diastolic 73 mmHg Heart Rate 87 /min 06/13/2018 9:22am Height 63 inches 5'3" Weight [...] Result H/L Range Note Laboratory test 10/26/2016 [facility] Send Out SENT - 1 [address] [place] [address] [phone] [facility]. sent - 2 1 See Reference Laboratory Report 2 NASAL SWAB FOR MRSA/MSSA BY PCR TO [facility] Procedures Date Code Description Status 01/30/2018 83863 Injection Proc Sacroiliac Joint, Completed Arthrography/Anesthetic/Steroid 01/14/2018 93701 Injection Proc Sacroiliac Joint, Completed Arthrography/Anesthetic/Steroid 12/19/2017 76678 Injection Proc Sacroiliac Joint, Completed Arthrography/Anesthetic/Steroid 11/02/2016 22598 Arthrodesis Posterior/Posterolateral Single, Lumbar Completed 11/02/2016 06682 Arthrodesis Posterior/Posterolateral Single, Lumbar Completed 11/02/2016 17359 Arthrodesis Posterior/Posterolateral, Ea Addtl Vertebral Completed Segment 11/02/2016 26091 Arthrodesis Posterior/Posterolateral, Ea Addtl Vertebral Completed Segment 11/02/2016 49721 Arthrodesis Posterior/Posterolateral, Ea Addtl Vertebral Completed Segment 11/02/2016 21966 Arthrodesis Posterior/Posterolateral, Ea Addtl Vertebral Completed Segment 11/02/2016 63844 Laminectomy Single Vertebral Segment Lumbar Completed 11/02/2016 90465 Laminectomy Single Vertebral Segment Lumbar Completed 11/02/2016 20054 Laminectomy Single Vertebral Segment Each Addtl Completed 11/02/2016 17324 Laminectomy Single Vertebral Segment Each Addtl Completed 11/02/2016 22190 Laminectomy Single Vertebral Segment Each Addtl Completed 11/02/2016 14645 Laminectomy Single Vertebral Segment Each Addtl Completed 11/02/2016 46142 Laminectomy Single Vertebral Segment Each Addtl Completed 11/02/2016 71474 Laminectomy Single Vertebral Segment Each Addtl Completed 10/26/2016 84419 Electrocardiogram Interpretation & Report Only Completed Encounters Type Date Location Provider Dx Diagnosis Office Visit 06/13/2018 [facility] Interventional Manohar S M54.16 Radiculopathy, 9:15a Spine / Pain Yanci Barnett MD lumbar region G89.29 Other chronic pain M96.1 Postlaminectomy syndrome, not elsewhere classified M46.1 Sacroiliitis, not elsewhere classified Z98.1 Arthrodesis status Office Visit 05/27/2018 10:00a [facility] Neurosurgery Manny Masterson, M46.1 Sacroiliitis, not MD elsewhere classified M53.3 Sacrococcygeal disorders, not elsewhere classified M96.1 Postlaminectomy syndrome, not elsewhere classified M51.16 Intervertebral disc disorders w radiculopathy, lumbar region G89.29 Other chronic pain E11.9 Type 2 diabetes mellitus without complications Z87.891 Personal history of nicotine dependence 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 Office Visit 02/28/2018 [facility] Interventional Manohar S M53.3 Sacrococcygeal 9:30a Spine / Pain MD Anibal disorders, not Yanci elsewhere classified M12.88 Oth specific arthropathies, NEC, oth site M54.16 Radiculopathy, lumbar region M96.1 Postlaminectomy syndrome, not elsewhere classified G89.29 Other chronic pain Z98.1 Arthrodesis status Office Visit 02/18/2018 [facility] Neurosurgery Manny Masterson, M53.3 Sacrococcygeal 10:45a MD disorders, not elsewhere classified M12.88 Oth specific arthropathies, NEC, oth site M54.16 Radiculopathy, lumbar region M96.1 Postlaminectomy syndrome, not elsewhere classified M51.16 Intervertebral disc disorders w radiculopathy, lumbar region Office Visit 01/21/2018 [facility] Interventional Manohar S M53.3 Sacrococcygeal 10:00a Spine / Pain MD Anibal disorders, not Yanci elsewhere classified M54.16 Radiculopathy, lumbar region M96.1 Postlaminectomy syndrome, not elsewhere classified M12.88 Oth specific arthropathies, NEC, oth site M43.26 Fusion of spine, lumbar region Office Visit 01/08/2018 [facility] Neurosurgery Manny Masterson, M53.3 Sacrococcygeal 10:45a disorders, not elsewhere classified M54.16 Radiculopathy, lumbar region M96.1 Postlaminectomy syndrome, not elsewhere classified M12.88 Oth specific arthropathies, NEC, oth site Office Visit 12/26/2017 [facility] Interventional Manohar S M53.3 Sacrococcygeal 10:00a Spine / Kelvin Barnett MD disorders, not Yanci elsewhere classified M54.16 Radiculopathy, lumbar region M96.1 Postlaminectomy syndrome, not elsewhere classified M43.26 Fusion of spine, lumbar region M12.88 Oth specific arthropathies, NEC, oth site Office Visit 12/18/2017 [facility] Interventional Manohar S M54.16 Radiculopathy, 9:00a Spine / Kelvin Barnett MD lumbar region Yanci M96.1 Postlaminectomy syndrome, not elsewhere classified M43.26 Fusion of spine, lumbar region M12.88 Oth specific arthropathies, NEC, oth site M53.3 Sacrococcygeal disorders, not elsewhere classified Office Visit 11/27/2017 10:30a [facility] Neurosurgery Manny Masterson, M41.9 MD Debra unspecified M51.36 Other intervertebral disc degeneration, 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, lumbar region E11.9 Type 2 diabetes mellitus without complications Z87.891 Personal history of nicotine dependence Office Visit 11/05/2017 10:30a [facility] Neurosurgery Manny Masterson M41.9 MD Debra unspecified M79.604 Pain in right leg M25.552 Pain in left hip M51.36 Other intervertebral disc degeneration, lumbar region Office Visit 05/21/2017 10:30a [facility] Neurosurgery Manny Masterson M41.9 MD Debra unspecified M79.604 Pain in right leg M25.552 Pain in left hip F17.210 Nicotine dependence, cigarettes, uncomplicated Office Visit 03/06/2017 1:00p [facility] Neurosurgery Manny Masterson, M41.9 ScoliosisMD unspecified M51.36 Other intervertebral disc degeneration, lumbar region M48.06 Spinal stenosis, lumbar region E11.9 Type 2 diabetes mellitus without complications M79.604 Pain in right leg M25.552 Pain in left hip F17.210 Nicotine dependence, cigarettes, uncomplicated Office Visit 02/07/2017 [facility] Neurosurgery Janell Schwartz M51.36 Other 9:00a Chayo, intervertebral disc DIETARY AIDE-C degeneration, lumbar region Office Visit 10/17/2016 [facility] Neurosurgery Manny Masterson MD M54.5 Low back pain 1:45p M48.06 Spinal stenosis, lumbar region M79.605 Pain in left leg M79.604 Pain in right leg M54.16 Radiculopathy, lumbar region M25.551 Pain in right hip M51.16 Intervertebral disc disorders w radiculopathy, lumbar region Office Visit 09/13/2016 11:00a [facility] Neurosurgery Manny Masterson MD M54.5 Low back pain M48.06 Spinal stenosis, lumbar region M79.605 Pain in left leg M79.604 Pain in right leg M54.16 Radiculopathy, lumbar region M25.551 Pain in right hip Plan of Treatment Future Appointment(s):09/23/2018 9:45 am - Manny Masterson MD at [facility] [id number]/04/2019 - Manny Masterson, MDM46.1 Sacroiliitis, not elsewhere [id number] Sacrococcygeal disorders, not elsewhere ylekcfnpqpX20.36 Other intervertebral disc degeneration, lumbar pydenmL31.9 Scoliosis, citsqehufvqQ65.1 Postlaminectomy syndrome, not elsewhere classified
--- NOTE | 2018-08-20 19:52 | ED ---
HPI Diabetic - HPI Summary HPI Summary: Patient is a 63 y/o F presenting to ED via ambulance with complaints of hypoglycemia, +LOC, and possible hypothermia. She was found unresponsive, +LOC, by a family member outside of her home. Family reports that patient was likely outside between 30-45 minutes in cold weather. Family member reports that when she came back from work, the patient was sitting outside in the porch. The family member claims that she had thought the patient was upset and was " cooling off" outside. When she checked on the patient again, she was noted to be slumped over. EMS was called. PMHx of type 1 diabetes, initial readings of BG were reported to be in 50s. Patient was given 2 IM glucagons, most recent reading 80 mg/dl. In the room, patient is alert and oriented x3. Per triage, patient "Does not remember LOC, or going outside". Last meal was lunch at around 7801-9376, patient did not have dinner. PMHx of chronic back pain is noted, patient takes hydrocodone and extra strength Tylenol for pain. She took two hydrocodone tablets today. In room, BP is 154/77. On triage, associated pain is rated 5/10. Nothing is noted to aggravate/alleviate Sx. Home medications and allergies are reviewed. - History Of Current Complaint Chief Complaint: EDAltMentalStatus Hx Obtained From: Patient, Family/Body Fitter, EMS Hx Last Menstrual Period: POST-MENOPAUSAL Onset/Duration: Lasting Minutes - outside 30-45 minutes, Resolved - LOC Timing: Intermittent Episode Lasting - outside 30-45 minutes Severity Currently: Moderate - 5/10 on triage Character: Alert - at present Aggravating: Nothing Alleviating: Nothing Associated Signs & Symptoms: Decreased Level of Conciousness - since resolved - Allergies/Home Medications Allergies/Adverse Reactions: Allergies Allergy/AdvReac Type Severity Reaction Status Date / Time pseudoephedrine Allergy Severe See Comment Verified 08/02/18 21:27 Penicillins Allergy Mild Rash Verified 08/02/18 21:27 PMH/Surg Hx/FS Hx/Imm Hx Endocrine/Hematology History: Reports: Hx Diabetes - has insulin pump, Hx Thyroid Disease Cardiovascular History: Reports: Hx Hypertension - ON MEDICATION FOR Denies: Hx Pacemaker/ICD GI History: Reports: Hx Gastroesophageal Reflux Disease - on meds, Other GI Disorders - COLOGINUS COLITIS- ON MEDICATION FOR History: Reports: Hx Kidney Stones - RIGHT 04/2017 Denies: Hx Renal Disease Musculoskeletal History: Reports: Hx Arthritis, Hx Tendonitis - from time to time Denies: Hx Rheumatoid Arthritis, Hx Osteoporosis Sensory History: Reports: Hx Cataracts - surgery 2011, Hx Contacts or Glasses Denies: Hx Hearing Aid Opthamlomology History: Reports: Hx Cataracts - surgery 2011, Hx Contacts or Glasses Neurological History: Reports: Hx Headaches, Hx Migraine - has meds, Hx Seizures - RELATED TO DIABETES-CONVULSIONS- RELATED TO LOW BLOOD SUGAR- YEARS AGO Psychiatric History: Reports: Hx Anxiety, Hx Depression Denies: Hx Panic Disorder - Cancer History Hx Chemotherapy: No Hx Radiation Therapy: No - Surgical History Surgery Procedure, Year, and Place: RIGHT WRIST FUSION, HYSTERECTOMY, LOWER BACK FUSION L2-L5 2016,. BILATERAL SHOULDER SURGERY-RIGHT WRIST CARPAL TUNNEL SURGERY. 04/2016 KIDNEY STONES. APPENDIX 1970. WISDOM TEETH 1972. C SECTIONS 1978/1980. 7 RIGHT KNEE SURGERIES -NO KNEE CAP 1953-1727. NUMEROUS TRIGGER FINGER RELEASES. left hip replacement 2016 Hx Anesthesia Reactions: Yes - from time to time throat gets raw from general Infectious Disease History: No Infectious Disease History: Denies: Traveled Outside the [place] in Last 30 Days - Family History Known Family History: Positive: Cardiac Disease, Hypertension, Diabetes - Social History Alcohol Use: Rare Substance Use Type: Reports: None Smoking Status (MU): Former Smoker Amount Used/How Often: <1 PPD X 30 YEARS Have You Smoked in the Last Year: No Review of Systems Constitutional: Other - POSITIVE - LOW BG Negative: Fever Musculoskeletal: Other - POSITIVE - CHRONIC BACK PAIN Neurological: Other - POSITIVE - LOC, SINCE RESOLVED All Other Systems Reviewed And Are Negative: Yes Physical Exam - Summary Physical Exam Summary: VITAL SIGNS: Reviewed. GENERAL: Patient is a well-developed and nourished female who is lying comfortable in the stretcher. Patient is not in any acute respiratory distress. HEAD AND FACE: No signs of trauma. No ecchymosis, hematomas or skull depressions. No sinus tenderness. EYES: PERRLA, EOMI x 2, No injected conjunctiva, no nystagmus. EARS: Hearing grossly intact. Ear canals and tympanic membranes are within normal limits. MOUTH: Oropharynx within normal limits. NECK: Supple, trachea is midline, no adenopathy, no JVD, no carotid bruit, no c- spine tenderness, neck with full ROM. CHEST: Symmetric, no tenderness at palpation LUNGS: Clear to auscultation bilaterally. No wheezing or crackles. CVS: Regular rate and rhythm, S1 and S2 present, no murmurs or gallops appreciated. ABDOMEN: Soft, non-tender. No signs of distention. No rebound no guarding, and no masses palpated. Bowel sounds are normal. EXTREMITIES: FROM in all major joints, no edema, no cyanosis or clubbing. NEURO: Alert and oriented x 3. No acute neurological deficits. Speech is normal and follows commands. SKIN: Dry Triage Information Reviewed: Yes Vital Signs On Initial Exam: Initial Vitals Temp Pulse Resp BP Pulse Ox 95.8 F 71 18 154/77 97 08/20/18 19:20 08/20/18 19:20 08/20/18 19:20 08/20/18 19:20 08/20/18 19:20 Vital Signs Reviewed: Yes Diagnostics - Vital Signs Vital Signs Temp Pulse Resp BP Pulse Ox 08/20/18 19:20 95.8 F 71 18 154/77 97 - Laboratory Result Diagrams: 08/20/18 19:30 08/20/18 19:30 Lab Statement: Any lab studies that have been ordered have been reviewed, and results considered in the medical decision making process. Re-Evaluation - Re-Evaluation First Eval Re-Evaluation Time: 20:14 Comment: Rectal temperature obtained was 94.0, temporal 95.7. Patient was given apple juice and placed on rachael hugger Second Eval Re-Evaluation Time: 21:31 Comment: BG is reported to be 75 by Nurse Montesinos, patient will be given more food and drinks. Third Eval Re-Evaluation Time: 22:39 Comment: Finger stick showed 239, patient's temperature is improved to 98.6 F at this time. She will be discharged to home, instructed to follow up with PCP. She is agreeable with this. Diabetic Course/Dx - Course Course Of Treatment: Patient is a 63 y/o F presenting to ED via ambulance with complaints of hypoglycemia, +LOC, and possible hypothermia. She was found unresponsive, +LOC, by a family member outside of her home. Family reports that patient was likely outside between 30-45 minutes in cold weather. Family member reports that when she came back from work, the patient was sitting outside in the porch. The family member claims that she had thought the patient was upset and was "cooling off" outside. When she checked on the patient again, she was noted to be slumped over. EMS was called. PMHx of type 1 diabetes, initial readings of BG were reported to be in 50s. Patient was given 2 IM glucagons, most recent reading 80 mg/dl. In the room, patient is alert and oriented x3. Per triage, patient "Does not remember LOC, or going outside". Last meal was lunch at around 6141-6667, patient did not have dinner. PMHx of chronic back pain is noted, patient takes hydrocodone and extra strength Tylenol for pain. She took two hydrocodone tablets today. Physical exam is unremarkable. Rectal temperature obtained was 94.0, temporal 95.7. Patient was given rachael hugger as well as food, drinks. Aftewards, finger stick showed 239 BG, patient's temperature is improved to 98.6 F at this time. She will be discharged to home, instructed to follow up with PCP. She is agreeable with this. - Diagnoses Provider Diagnoses: Hypoglycemia Discharge - Sign-Out/Discharge Documenting (check all that apply): Patient Departure - discharge Patient Received Moderate/Deep Sedation with Procedure: No - NO PROCEDURES DONE - Discharge Plan Condition: Stable Disposition: HOME Patient Education Materials: Hypoglycemia in a Person with Diabetes (ED) Referrals: Alethea Billingsley MD [Primary Care Provider] - 2 Days Additional Instructions: RETURN TO THE EMERGENCY DEPARTMENT FOR CHANGING OR WORSENING SYMPTOMS. FOLLOW UP WITH PRIMARY CARE PHYSICIAN IN 1-2 DAYS. - Attestation Statements Document Initiated by Myke: Yes Documenting Scribe: ZAID FUNG Provider For Whom Myke is Documenting (Include Credential): THEO RUTHERFORD MD Scribe Attestation: ZAID Worrell, scribed for THEO RUTHERFORD MD on 08/20/18 at 4003. Status of Scribe Document: Ready
[2018-08-20 20:06] LABS: ABS Basophils 0 10^3/ul (0-0.2); ABS Eosinophils 0.1 10^3/ul (0-0.6); ABS Lymphocytes 1.7 10^3/ul (1.0-4.8); ABS Monocytes 1.4 10^3/ul (0-0.8); ABS Neutrophils 14.3 10^3/ul (1.5-7.7); ABS Nucleated RBC 0 10^3/ul; Eosinophil % 0.4 %; Hematocrit 44 % (35-47); Hemoglobin 14.6 g/dl (12.0-16.0); Lymphocyte % 9.6 %; Mean Corpuscular HGB Conc 34 g/dl (31-36); Mean Corpuscular Hemoglobin 33 pg (27-31); Mean Corpuscular Volume 99 fL (80-97); Mean Platelet Volume 8.7 fL (7.4-10.4); Nucleated Red Blood Cells % 0; Platelet Count 302 10^3/ul (150-450); Red Blood Count 4.43 10^6/ul (4.00-5.40); Red Cell Distribution Width 15 % (10.5-15); White Blood Count 17.4 10^3/ul (3.5-10.8)
[2018-08-20 20:16] LABS: Albumin 4.3 g/dL (3.2-5.2); Albumin/Globulin Ratio 1.4 (1-3); BUN/Creatinine Ratio 21.1 (8-20); Calcium 9.7 mg/dL (8.6-10.3); EGFR African American 92.7 (>60); EGFR Non-African American 76.6 (>60); Potassium 3.6 mmol/L (3.5-5.0); Total Bilirubin 0.2 mg/dL (0.2-1.0); Total Protein 7.3 g/dL (6.4-8.9)
[2018-08-20 22:44] VITALS: BP 131/60
== END 2018-08-20 22:53 | disposition home or self-care (01) ==
LOC: ED 19:18
DX: E10.641 Type 1 diabetes mellitus with hypoglycemia with coma (principal); Z96.41 Presence of insulin pump (external) (internal); I10 Essential (primary) hypertension; K21.9 Gastro-esophageal reflux disease without esophagitis; Z88.0 Allergy status to penicillin; Z88.8 Allergy status to other drugs, medicaments and biological substances; Z87.891 Personal history of nicotine dependence
CPT/HCPCS: 36415; 80053; 85025; 99284